=== PATIENT | male | born 1950 | race Caucasian/White ===

== ENCOUNTER → 2016-12-30 | Day surgery (SDC) | payer OTHER ==
[~2016-12-30] MED LIST: ACCUPRIL40 MG PO; CARDURA2 MG PO; CITALOPRAM HBR40 MG PO; COUMADIN5 MG PO; FLOMAX0.4 M1 PO; FLONASE16 GM; LIPITOR40 MG PO; LOPRESSOR PO; LOVENOX120 MG/0.8 INJ; MEVACOR40 MG PO; MUCINEX D ER T1 EAC1 PO; NEXIUM PO; NORCO 10-325 TA1 TAB PO; NORVASC PO; POTASSIUM CHLO10 MEQ PO; PROAIR HFA8.5 GM IH; SINGULAIR PO; VICODIN 5/1 TAB 5/50 PO; VITAMIN D 3 PO; ZANTAC150 M1 PO; ZYLOPRIM100 MG PO
--- NOTE | ~2016-12-30 | OR ---
Unit #: [id number] #: [id number] Patient: RAGHAV VILLALBA [id number] [address] [address] [id number] O MR#: [id number] NAME: RAGHAV VILLALBA. ROOM: Date of Procedure: 12/30/2016 Admission Date: 12/30/2016 Surgeon: Toy Ness M.D. : 1950 Attending Physician: Toy Ness M.D. Primary Care Physician: Emili Christensen M.D. OPERATIVE REPORT JOB NOTE: CC: PRIMARY CARE PHYSICIAN PROCEDURE PERFORMED Colonoscopy with snare polypectomy. INDICATIONS FOR PROCEDURE A 66-year-old gentleman, positive for FIT test, undergoing colonoscopy for evaluation. MEDICATIONS Monitored anesthesia. POSTOPERATIVE FINDINGS 1. Very poor prep leading to suboptimal exam. 2. Sigmoid colon polyp x2, 4 to 5 mm each, snared and sent for histopathology. 3. Polyp rectum x1, 4 to 5 mm, snared and sent for histopathology. PLAN Follow up on pathology report. Given the poor prep, I recommend the repeat colonoscopy in 3 years. DESCRIPTION OF PROCEDURE The patient was explained of the procedure, risks, and benefits along with the risks and benefits of anesthesia. He was brought to the endoscopy room. Propofol anesthesia was given. Rectal exam was done, which was normal. Colonoscope was lubricated, passed up the rectum, advanced under direct vision all the way to the cecum. Cecum was identified. At this point, we started to pull the scope out carefully looking. Polyp has been described above. Rest of the exam was normal, but . I retroflexed in the rectum, small hemorrhoids seen. The scope was gently pulled out. He tolerated it well. Dictated by... Kj Irwin/gabriel TD: 12/30/2016 20:17 JOB #: [id number] Unit #: [id number] #: [id number] Patient: RAGHAV VILLALBA OPERATIVE REPORT Page 1 of 1 X Toy Ness MD PROCEDURE OPERATIVE NOTE
== END | disposition home or self-care (01) ==
LOC: COPS 08:30
DX: D12.5 Benign neoplasm of sigmoid colon (principal); K62.1 Rectal polyp; I25.10 Atherosclerotic heart disease of native coronary artery without angina pectoris; K21.9 Gastro-esophageal reflux disease without esophagitis; J44.9 Chronic obstructive pulmonary disease, unspecified; F17.210 Nicotine dependence, cigarettes, uncomplicated; Z79.51 Long term (current) use of inhaled steroids; Z79.899 Other long term (current) drug therapy; Z95.1 Presence of aortocoronary bypass graft; Z98.890 Other specified postprocedural states
CPT/HCPCS: 88305